=== PATIENT | female | born 1990 | race Caucasian/White ===

== ENCOUNTER 2019-05-10 13:35 | Emergency (ER) | payer BC, SELFPAY ==
[2019-05-10 13:35] VITALS: BP 152/85; PULSE 116; RESP 36; TEMP 38.8; O2SAT 95; BMI 38.9
--- NOTE | 2019-05-10 13:43 | W.ED.URI ---
HPI - URI/Sore Throat General: Chief Complaint: Upper Respiratory Infection Stated Complaint: SOB/ COUGH/ CHEST PAIN Time Seen by Provider: 05/10/19 13:36 Review of Systems General: Reports: 10 or more systems reviewed and unremarkable except in HPI and below PFSH ED PFSH: Statuses (acute, chronic, etc) shown below reflect problem list status as previously entered and may not be historically accurate Social History Smoking and tobacco status: current every day smoker Physical Exam Narrative: EXAM NARRATIVE: Patient states she has been ill for the past few days. Nonproductive cough with shortness of breath. Const: COMMON NORMALS: no apparent distress, average body habitus, oriented x3 and alert GENERAL APPEARANCE: cooperative, comfortable and well kempt ORIENTATION/CONSCIOUSNESS: Yes awake, Yes oriented to person, Yes oriented to place and Yes oriented to time HENMT: COMMON NORMALS: normocephalic, head/scalp atraumatic and external nose normal HEAD & SCALP: normal to inspection, normocephalic and atraumatic NOSE: external nose normal Neck/C-Spine: COMMON NORMALS: full ROM, no lymphadenopathy, supple and no JVD Resp: COMMON NORMALS: normal respiratory effort and no retractions EFFORT & INSPECTION: Yes able to speak in complete sentences AUSCULTATION: diminished lung sounds Cardio: COMMON NORMALS: no JVD, regular rate and regular rhythm RATE: regular rate RHYTHM: regular rhythm GI: COMMON NORMALS: normal to inspection, nondistended, normoactive bowel sounds : COMMON NORMALS: Yes no CVA tenderness BLADDER/KIDNEY EXAM: Yes no CVA tenderness Back/Pelvis: COMMON NORMALS: no CVA tenderness Extremity: COMMON NORMALS: normal to inspection, full ROM and normal capillary refill Neuro: COMMON NORMALS: oriented x3 SENSORIUM/ORIENTATION: Yes alert, Yes oriented to person, Yes oriented to place and Yes oriented to time Psych: APPEARANCE: Yes well kempt Course Vital Signs: Vital signs: Vital Signs Temperature 102 F H 05/10/19 13:35 Pulse Rate 112 H 05/10/19 14:23 Respiratory Rate 25 H 05/10/19 14:20 Blood Pressure 152/85 05/10/19 13:35 Pulse Oximetry 97 05/10/19 14:20 MDM - URI/Sore Throat Lab Data: Labs: Lab Results 05/10/19 05/10/19 05/10/19 Range/Units 13:54 13:54 14:17 WBC 10.8 H (4.0-10.0) 10^3/ uL RBC 5.00 (4.1-5.3) 10^6/u L Hgb 13.9 (11.5-15.3) g/dL Hct 43.3 (37.0-47.0) % MCV 86.6 (81-99) fL MCH 27.8 L (28.0-34.0) pg MCHC 32.1 (30.0-36.0) g/dL RDW 13.7 (12.1-15.1) % Plt Count 207 (130-400) 10^3/c mm MPV 9.6 (7.4-10.4) fL Neut % (Auto) 76.7 % Lymph % (Auto) 15.8 % [place] % (Auto) 6.5 % Eos % (Auto) 0.3 % Baso % (Auto) 0.3 % Neut # (Auto) 8.3 H (1.8-7.7) 10^3/u L Lymph # (Auto) 1.7 (0.8-4.8) 10^3/u L [place] # (Auto) 0.7 (0.2-0.9) 10^3/u L Eos # (Auto) 0.0 (0.0-0.8) 10^3/u L Baso # (Auto) 0.0 (0.0-0.1) 10^3/u L Nucleated RBC % (a uto) 0 % Nucleated RBCs # 0.0 /100WBC Sodium 134 L (136-145) mmol/L Potassium 3.8 (3.5-5.1) mmol/L Chloride 98 (98-107) mmol/L Carbon Dioxide 25 (22-29) mmol/L Anion Gap 14.8 (5-19) BUN 6 (6-20) mg/dL Creatinine 0.9 (0.5-0.9) mg/dL GFR Calculation 75.1 L (90-130) mL/min Glucose 102 (74-109) mg/dL Calcium 9.3 (8.6-10.0) mg/Dl Total Bilirubin 0.2 (0.15-1.2) mg/dL AST 26 (0-32) U/L ALT 24 (0-33) U/L Alkaline Phosphata se 126 H (35-105) IU/L Total Protein 7.8 (6.6-8.7) g/dL Albumin 3.9 (3.5-5.2) g/dL Globulin 3.9 (1.3-4.6) g/dL Influenza Type A A g Negative (Negative) POC Influenza B Ag Negative (Negative) Discharge Plan Discharge Condition: Stable Prescriptions: No Action No Known Home Medications RF: 0 Coding Level of Care Code 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
--- NOTE | 2019-05-10 13:46 | XR_ITS ---
WS: [id number] PORTABLE CHEST HISTORY: cough / dyspnea COMPARISON: None available. Mild bronchial thickening in the RIGHT upper lobe. No consolidation. No pleural effusion or pneumotho rax. Cardiac size: Normal. Mediastinum/Aorta: Normal mediastinum. No osseous abnormality seen. XR/XR chest 1V portable [id number] IMPRESSION: Mild inflammatory changes RIGHT upper lobe.
[2019-05-10] MEDS: sodium chloride 0.9% 1,000 ML 999 ML IV (14:06)
[2019-05-10 14:07] LABS: Basophils % 0.3 %; Eosinophils % 0.3 %; Hematocrit 43.3 % (37.0-47.0); Hemoglobin 13.9 g/dL (11.5-15.3); Lymphocytes # 1.7 10^3/uL (0.8-4.8); Lymphocytes % 15.8 %; Mean Corpuscular HGB Conc 32.1 g/dL (30.0-36.0); Mean Corpuscular Hemoglobin 27.8 pg (28.0-34.0); Mean Corpuscular Volume 86.6 fL (81-99); Mean Platelet Volume 9.6 fL (7.4-10.4); Monocytes # 0.7 10^3/uL (0.2-0.9); Monocytes % 6.5 %; Neutrophils # 8.3 10^3/uL (1.8-7.7); Neutrophils % 76.7 %; Nucleated Red Blood Cells % 0 %; Platelet Count 207 10^3/cmm (130-400); Red Cell Distribution Width 13.7 % (12.1-15.1); White Blood Count 10.8 10^3/uL (4.0-10.0)
[2019-05-10] MEDS: ipratropium-albuterol 3 mL Neb INHALATION (14:13)
[2019-05-10 14:18] LABS: Alanine Aminotransferase 24 U/L (0-33); Albumin Level 3.9 g/dL (3.5-5.2); Alkaline Phosphatase 126 IU/L (35-105); Anion Gap 14.8 (5-19); Aspartate Amino Transferase 26 U/L (0-32); Blood Urea Nitrogen 6 mg/dL (6-20); Calcium 9.3 mg/Dl (8.6-10.0); Carbon Dioxide 25 mmol/L (22-29); Chloride 98 mmol/L (98-107); Globulin 3.9 g/dL (1.3-4.6); Glomerular Filtration Rate 75.1 mL/min (90-130); Glucose 102 mg/dL (74-109); Potassium 3.8 mmol/L (3.5-5.1); Sodium 134 mmol/L (136-145); Total Bilirubin 0.2 mg/dL (0.15-1.2); Total Protein 7.8 g/dL (6.6-8.7)
[2019-05-10 14:20] VITALS: PULSE 119; RESP 25; O2SAT 97
[2019-05-10 14:23] VITALS: PULSE 112
[2019-05-10 14:59] LABS: Influenza A by IFA Negative (Negative); Influenza B by IFA Negative (Negative)
[2019-05-10] MEDS: acetaminophen 500 mg Tablet 1000 MG PO (15:23)
[2019-05-10] MEDS: cefTRIAXone 1,000 MG in sodium chloride 0.9% (plus) 50 ML 100 MG IV (15:25)
[2019-05-10 16:14] VITALS: BP 125/85; PULSE 117; RESP 16; O2SAT 95
== END 2019-05-10 16:15 | disposition home or self-care (01) ==
PROVIDERS: Emergency Provider Family Medicine; Family Provider Nurse Practitioner; PCP Nurse Practitioner
DX: F17.210 Nicotine dependence, cigarettes, uncomplicated (principal)
CPT/HCPCS: 36415; 71045; 80053; 85025; 87804; 96360; 96365; 99281; J0696; J7030

== ENCOUNTER → 2020-05-31 17:06 | Outpatient (BNVA) | payer BC, SELFPAY | PROVIDERS: Family Provider Nurse Practitioner; PCP Nurse Practitioner; Visit Provider Nurse Practitioner Family | DX: Z20.828 Contact with and (suspected) exposure to other viral communicable diseases (principal); J06.9 Acute upper respiratory infection, unspecified | CPT/HCPCS: 87635 ==

== ENCOUNTER → 2021-05-07 11:51 | Outpatient (BNVA) | payer MEDICAID, SELFPAY | PROVIDERS: Family Provider Nurse Practitioner; PCP Nurse Practitioner; Visit Provider Family Medicine | DX: Z83.3 Family history of diabetes mellitus (principal); Z82.49 Family history of ischemic heart disease and other diseases of the circulatory system; Z83.438 Family history of other disorder of lipoprotein metabolism and other lipidemia | CPT/HCPCS: 80053; 80061; 83036; 84443; 85025 ==

== ENCOUNTER → 2021-06-18 17:00 | Outpatient (BNVA) | payer MEDICAID, SELFPAY | PROVIDERS: Family Provider Nurse Practitioner; PCP Family Medicine; Visit Provider Family Medicine | DX: Z01.419 Encounter for gynecological examination (general) (routine) without abnormal findings (principal) | CPT/HCPCS: 88175 ==

== ENCOUNTER 2021-08-07 20:00 | Outpatient (CLI) | payer OTHER, SELFPAY | END 2021-08-07 20:01 | disposition home or self-care (01) | LOC: SLEEP 08-08 05:44 | PROVIDERS: Family Provider Nurse Practitioner; PCP Family Medicine; Visit Provider Family Medicine | DX: G47.30 Sleep apnea, unspecified (principal) | CPT/HCPCS: 95810 ==

== ENCOUNTER 2021-10-08 20:00 | Outpatient (CLI) | payer OTHER, SELFPAY | END 2021-10-08 20:01 | disposition home or self-care (01) | LOC: SLEEP 10-09 05:15 | PROVIDERS: Family Provider Nurse Practitioner; PCP Family Medicine; Visit Provider Family Medicine | DX: G47.33 Obstructive sleep apnea (adult) (pediatric) (principal) | CPT/HCPCS: 95811 ==

== ENCOUNTER → 2022-01-29 13:25 | Outpatient (BNVA) | payer MEDICAID, SELFPAY | PROVIDERS: Family Provider Nurse Practitioner; PCP Family Medicine; Visit Provider Nurse Practitioner Family | DX: H10.022 Other mucopurulent conjunctivitis, left eye (principal); E66.01 Morbid (severe) obesity due to excess calories; E78.5 Hyperlipidemia, unspecified; E11.9 Type 2 diabetes mellitus without complications | CPT/HCPCS: 80053; 80061; 83036; 83721; 84443 ==

== ENCOUNTER → 2022-02-13 12:07 | Outpatient (BNVA) | payer MEDICAID, SELFPAY | PROVIDERS: Family Provider Nurse Practitioner; PCP Family Medicine; Visit Provider Nurse Practitioner Family | DX: E11.9 Type 2 diabetes mellitus without complications (principal); E78.5 Hyperlipidemia, unspecified; Z76.89 Persons encountering health services in other specified circumstances; E66.01 Morbid (severe) obesity due to excess calories | CPT/HCPCS: 83036 ==

== ENCOUNTER → 2022-04-29 17:43 | Outpatient (BNVA) | payer MEDICAID, SELFPAY | PROVIDERS: Family Provider Nurse Practitioner; PCP Family Medicine; Visit Provider Nurse Practitioner Family | DX: E78.5 Hyperlipidemia, unspecified (principal); E11.9 Type 2 diabetes mellitus without complications; J06.9 Acute upper respiratory infection, unspecified; J32.0 Chronic maxillary sinusitis; M54.31 Sciatica, right side; R05.9 Cough, unspecified; J40 Bronchitis, not specified as acute or chronic | CPT/HCPCS: 80053 ==

== ENCOUNTER → 2022-05-19 12:09 | Outpatient (BNVA) | payer OTHER, SELFPAY | PROVIDERS: Family Provider Nurse Practitioner; PCP Family Medicine; Visit Provider Nurse Practitioner Family | DX: E11.9 Type 2 diabetes mellitus without complications (principal); Z82.49 Family history of ischemic heart disease and other diseases of the circulatory system; E78.5 Hyperlipidemia, unspecified; M54.31 Sciatica, right side; Z23 Encounter for immunization | CPT/HCPCS: 80053; 80061; 83036 ==

== ENCOUNTER → 2022-08-19 11:26 | Outpatient (BNVA) | payer OTHER, SELFPAY | PROVIDERS: Family Provider Nurse Practitioner; PCP Family Medicine; Visit Provider Nurse Practitioner Family | DX: E11.9 Type 2 diabetes mellitus without complications (principal); E78.5 Hyperlipidemia, unspecified | CPT/HCPCS: 80053; 80061; 83036 ==

== ENCOUNTER → 2022-09-10 09:00 | Outpatient (BNVA) | payer OTHER, SELFPAY | PROVIDERS: Family Provider Nurse Practitioner; PCP Family Medicine; Referring Provider Nurse Practitioner Family; Visit Provider Nurse Practitioner Women's Health | DX: N91.0 Primary amenorrhea (principal) | CPT/HCPCS: 82670; 83001; 84146; 84402; 84439; 84443; 84702 ==

== ENCOUNTER → 2022-09-25 12:27 | Outpatient (BNVA) | payer OTHER, SELFPAY | PROVIDERS: Family Provider Nurse Practitioner; PCP Family Medicine; Visit Provider Nurse Practitioner Women's Health | DX: N91.0 Primary amenorrhea (principal); R93.89 Abnormal findings on diagnostic imaging of other specified body structures | CPT/HCPCS: 76830 ==

== ENCOUNTER → 2022-10-02 08:41 | Outpatient (BNVA) | payer SELFPAY | PROVIDERS: Family Provider Nurse Practitioner; PCP Family Medicine; Visit Provider Nurse Practitioner Women's Health | DX: N91.2 Amenorrhea, unspecified (principal) | CPT/HCPCS: 81025; 88305 ==

== ENCOUNTER → 2022-10-08 15:05 | Outpatient (BNVA) | payer SELFPAY | PROVIDERS: Family Provider Nurse Practitioner; PCP Family Medicine; Visit Provider Obstetrics & Gynecology | DX: E28.2 Polycystic ovarian syndrome (principal) | CPT/HCPCS: 83002 ==

== ENCOUNTER 2022-10-09 09:46 | Outpatient (CLI) | payer OTHER, SELFPAY | END 2022-10-09 09:47 | disposition home or self-care (01) | PROVIDERS: PCP Family Medicine; Visit Provider Obstetrics & Gynecology | DX: E28.2 Polycystic ovarian syndrome (principal) | CPT/HCPCS: 36415; 88262 ==

== ENCOUNTER → 2022-12-16 11:49 | Outpatient (BNVA) | payer OTHER, SELFPAY | PROVIDERS: PCP Family Medicine; Visit Provider Nurse Practitioner Family | DX: E78.5 Hyperlipidemia, unspecified (principal); E11.9 Type 2 diabetes mellitus without complications | CPT/HCPCS: 80053; 80061; 83036 ==

== ENCOUNTER → 2023-03-18 08:45 | Outpatient (BNVA) | payer SELFPAY | PROVIDERS: PCP Family Medicine; Visit Provider Nurse Practitioner Family | DX: E78.5 Hyperlipidemia, unspecified (principal); E11.9 Type 2 diabetes mellitus without complications; E28.2 Polycystic ovarian syndrome | CPT/HCPCS: 80053; 80061; 83036; 85025 ==

== ENCOUNTER → 2023-07-15 11:42 | Outpatient (BNVA) | payer OTHER, SELFPAY | PROVIDERS: PCP Family Medicine; Visit Provider Nurse Practitioner Family | DX: E78.2 Mixed hyperlipidemia (principal); E28.2 Polycystic ovarian syndrome; E11.9 Type 2 diabetes mellitus without complications; E66.01 Morbid (severe) obesity due to excess calories | CPT/HCPCS: 80053; 80061; 83036; 84443; 85025 ==

== ENCOUNTER 2023-08-17 18:53 | Emergency (ER) | payer OTHER, SELFPAY ==
--- NOTE | 2023-08-17 19:08 | XRR_ITS ---
PROCEDURE INFORMATION: Exam: XR Left Knee Exam date and time: 08/17/2023 8:01 PM Age: 32 years old Clinical indication: Injury or trauma; Other: Twisted lt knee; Additional info: Pain TECHNIQUE: Imaging protocol: Radiologic exam of the left knee. Views: 3 views. COMPARISON: No relevant prior studies available. FINDINGS: Bones/joints: Small joint effusion. No acute fracture. Soft tissues: Normal. XR/XR knee LT 3V* [id number] IMPRESSION: 1. Small joint effusion. 2. No acute fracture.
[2023-08-17 19:09] VITALS: BP 136/85; PULSE 100; RESP 18; TEMP 37.1; O2SAT 98
[2023-08-17] MEDS: ketorolac 60 mg/2 mL INJ IM (20:05)
--- NOTE | 2023-08-17 20:19 | W.ED.EXTPRO ---
Documented by User: SIRENA Cardoza 08/17/23 21:26 HPI - Extremity Problem General: Chief complaint: Extremity Injury, Lower Stated complaint: left knee pain Time Seen by Provider: 08/17/23 19:41 Source: patient Mode of arrival: ambulatory Limitations: no limitations History of Present Illness: Patient is a 32-year-old female present to the emergency department complaining of left knee pain onset Thursday. Patient states she was playing with her kids when she had a sudden twisting of the left knee, and notes pain has steadily worsened since. She denies any bruising but states it has begun to swell up on her. She denies any previous injuries or surgeries to that knee. No distal neurovascular complaints. She states that ambulation has become increasingly difficult due to the pain. Pain currently an 8 out of 10 stating she has been using Tylenol and ibuprofen. No other symptoms reported this time. MD Complaint: joint swelling and joint pain Onset (ago): day(s) Pain Consistency: constant Location: left Severity scale (1-10): 8 Radiation: none Relieving factors: nothing Exacerbating factors: range of motion, weight bearing, walking and palpation Associated symptoms: Deny chest pain, fever(s) or rash Review of Systems General: Reports: 10 or more systems reviewed and unremarkable except in HPI and below Const: Denies: fever(s), chills or fatigue Eyes: Denies: change in vision ENMT: Denies: throat pain, ear or mastoid pain or nasal discharge Card: Denies: chest pain, palpitations, swelling of feet/ankles or lightheadedness Resp: Denies: dyspnea, productive cough or wheezing GI: Denies: abdominal pain, nausea, vomiting, diarrhea or constipation : Denies: flank pain, difficulty voiding, dysuria or urinary frequency Musc: Reports: joint pain and joint swelling; Denies: neck pain or back pain Skin/Breast: Denies: rash Neuro: Denies: headache(s), numbness in extremities or weakness in extremities PFS ED PFSH: Medical History Primary amenorrhea Sciatica of right side Type 2 diabetes mellitus Hyperlipidemia Morbid obesity due to excess calories Sleep apnea Surgical History History of laparoscopy at 18 y/o to remove Left dermoid ovarian cyst. Performed by Dr. Rivera Family History Family/Other Cancer, Onset Age: 40 maternal aunt Family history of premature coronary artery disease, Onset Age: 46 Maternal Uncle Mother Diabetes Hyperlipidemia Hypertension Father Diabetes Grandmother Stroke MGM Denies family history of Clotting disorder Bleeding disorder Social History Smoking and tobacco/nicotine status: never used tobacco/nicotine Alcohol intake: current Alcohol intake frequency: holidays/special occasions only Substance/Drug Use: never Lives independently: No Household members: significant other Marital status: Life Partner service: No Current gender identity: Female Physical Exam Const: COMMON NORMALS: no acute distress, patient oriented x3 and no limitations GENERAL APPEARANCE: cooperative, comfortable and well developed ORIENTATION/CONSCIOUSNESS: Yes awake, Yes oriented to person, Yes oriented to place and Yes oriented to time HENMT: COMMON NORMALS: normocephalic, atraumatic and hearing grossly normal bilaterally HEAD & SCALP: normocephalic and atraumatic Eye: COMMON NORMALS: Equal, round and reactive pupils present, EOMs intact bilaterally and conjunctivae normal CONJUNCTIVA: Yes conjunctivae normal PUPIL: Yes Equal, round and reactive pupils present Neck/C-Spine: COMMON NORMALS: full ROM, supple and no JVD Resp: COMMON NORMALS: normal respiratory effort, No retractions, No use of accessory muscles and clear to auscultation bilaterally AUSCULTATION: clear to auscultation bilaterally Cardio: COMMON NORMALS: no JVD, regular rate, regular rhythm, No clicks present (Cardio), No murmurs present (Cardio) and No rub (Cardio) RATE: regular rate RHYTHM: regular rhythm Extremity: NARRATIVE EXTREMITY EXAM: Left knee minimally swollen. No obvious signs of deformities or bruising. She is diffusely tender to palpation, no appreciable joint effusions. Normal ankle, tib-fib, hip examination on the left side. No varus or valgus laxity. Negative anterior posterior drawer. Neuro: COMMON NORMALS: patient oriented x3, moves all extremities, no focal motor deficits and no sensory deficits noted SENSORIUM/ORIENTATION: Yes oriented to person, Yes oriented to place and Yes oriented to time Psych: COMMON NORMALS: mental status grossly normal and Normal thought process present THOUGHT PROCESS: Normal thought process present Skin: COMMON NORMALS: no rashes or lesions noted GENERAL SKIN EXAM: no rashes or lesions noted Course Vital Signs: Vital signs: Vital Signs Temperature 98.8 F 08/17/23 19:09 Pulse Rate 101 H 08/17/23 21:43 Respiratory Rate 18 08/17/23 21:43 Blood Pressure 143/94 08/17/23 21:43 Pulse Oximetry 95 08/17/23 21:43 Oxygen Delivery Me thod Room Air 08/17/23 19:09 MDM - Extremity (Nontraumatic) Medical Decision Making Patient seen and evaluated due to left knee injury on Thursday worsening pain since. Vitals normal on arrival, patient's condition has remained stable. Exam did show diffusely swollen and tender to palpation left knee, I did not appreciate any joint effusion at this time. Negative special knee testing. X-ray of the left knee did show evidence of a small joint effusion, however no fractures or dislocations. I do have mild to moderate suspicion of a potential underlying ligamentous injury, sprain versus tear. I will discharge the patient on crutches and instructed to be nonweightbearing until she follows up with Ortho in the next few days. Did instruct her to enact RICE therapy. Return precautions were given and patient agrees with discharge home. Lab Data Radiology Impressions Knee X-Ray 08/17/23 19:08 IMPRESSION: 1. Small joint effusion. 2. No acute fracture. All radiology interpretation(s) finalized by discharge Discharge Plan Discharge Patient Disposition: Home Clinical Impression: Left knee sprain Qualifiers: Encounter type: initial encounter Involved ligament of knee: unspecified ligament Qualified Code(s): S83.92XA - Sprain of unspecified site of left knee, initial encounter Condition: Stable Prescriptions: No Action tramadol 50 mg tablet 50 mg PO TID PRN (Reason: pain) 30 Days Qty: 90 1RF topiramate 25 mg tablet 25 mg PO BID 30 Days Qty: 60 3RF polyethylene glycol 3350 [Miralax] 17 gram/dose powder 17 g PO DAILY 30 Days Qty: 510 3RF cyclobenzaprine 10 mg tablet 10 mg PO TID PRN (Reason: muscle spasm) Qty: 90 3RF cetirizine [Zyrtec] 10 mg tablet 10 mg PO DAILY 90 Days Qty: 90 1RF azelastine [Astepro Allergy] 205.5 mcg (0.15 %) spray,non-aerosol 2 spray intranasal BID Qty: 30 3RF Rx Instructions: administer into each nostril atorvastatin 40 mg tablet See Rx Instructions .ROUTE .COMPLEX Qty: 30 3RF Dose Instruction: TAKE ONE TABLET BY MOUTH At Bedtime Rx Instructions: TAKE ONE TABLET BY MOUTH At Bedtime (DME) BI-PAP set up kit See Rx Instructions .Route .MEDSUPPLY Qty: 1 0RF Rx Instructions: As directed Discharge Orders: Discharge ED (Routine); Ordered 08/17/23 Ordered By: Ed Tan Referrals: Yasmine Weems MD [Primary Care Provider] - Discharge Diet: Usual diet Discharge Activity: Use walker/crutches as instructed Patient Instructions: Knee Sprain (ED) Activity Restrictions/Additional Instructions: Use crutches as instructed. Rest, ice, compression, and elevation. Please follow-up with orthopedics as discussed. Tylenol and ibuprofen for pain. Please return with any new or worsening symptoms may have. 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 Performed by Dr. Rivera Family History Family/Other Cancer, Onset Age: 40 maternal aunt Family history of premature coronary artery disease, Onset Age: 46 Maternal Uncle Mother Diabetes Hyperlipidemia Hypertension Father Diabetes Grandmother Stroke MGM Denies family history of Clotting disorder Bleeding disorder Social History Smoking and tobacco/nicotine status: never used tobacco/nicotine Alcohol intake: current Alcohol intake frequency: holidays/special occasions only Substance/Drug Use: never Lives independently: No Household members: significant other Marital status: Life Partner service: No Current gender identity: Female Course Vital Signs: Vital signs: Vital Signs Temperature 98.8 F 08/17/23 19:09 Pulse Rate 101 H 08/17/23 21:43 Respiratory Rate 18 08/17/23 21:43 Blood Pressure 143/94 08/17/23 21:43 Pulse Oximetry 95 08/17/23 21:43 Oxygen Delivery Me thod Room Air 08/17/23 19:09 MDM - Extremity (Nontraumatic) Medical Decision Making Patient seen and evaluated due to left knee injury on Thursday worsening pain since. Vitals normal on arrival, patient's condition has remained stable. Exam did show diffusely swollen and tender to palpation left knee, I did not appreciate any joint effusion at this time. Negative special knee testing. X-ray of the left knee did show evidence of a small joint effusion, however no fractures or dislocations. I do have mild to moderate suspicion of a potential underlying ligamentous injury, sprain versus tear. I will discharge the patient on crutches and instructed to be nonweightbearing until she follows up with Ortho in the next few days. Did instruct her to enact RICE therapy. Return precautions were given and patient agrees with discharge home. Chart reviewed Lab Data Radiology Impressions Knee X-Ray 08/17/23 19:08 IMPRESSION: 1. Small joint effusion. 2. No acute fracture. Discharge Plan Discharge Patient Disposition: Home Clinical Impression: Left knee sprain Qualifiers: Encounter type: initial encounter Involved ligament of knee: unspecified ligament Qualified Code(s): S83.92XA - Sprain of unspecified site of left knee, initial encounter Condition: Stable Prescriptions: No Action tramadol 50 mg tablet 50 mg PO TID PRN (Reason: pain) 30 Days Qty: 90 1RF topiramate 25 mg tablet 25 mg PO BID 30 Days Qty: 60 3RF polyethylene glycol 3350 [Miralax] 17 gram/dose powder 17 g PO DAILY 30 Days Qty: 510 3RF cyclobenzaprine 10 mg tablet 10 mg PO TID PRN (Reason: muscle spasm) Qty: 90 3RF cetirizine [Zyrtec] 10 mg tablet 10 mg PO DAILY 90 Days Qty: 90 1RF azelastine [Astepro Allergy] 205.5 mcg (0.15 %) spray,non-aerosol 2 spray intranasal BID Qty: 30 3RF Rx Instructions: administer into each nostril atorvastatin 40 mg tablet See Rx Instructions .ROUTE .COMPLEX Qty: 30 3RF Dose Instruction: TAKE ONE TABLET BY MOUTH At Bedtime Rx Instructions: TAKE ONE TABLET BY MOUTH At Bedtime (DME) BI-PAP set up kit See Rx Instructions .Route .MEDSUPPLY Qty: 1 0RF Rx Instructions: As directed Discharge Orders: Discharge ED (Routine); Ordered 08/17/23 Ordered By: Ed Tan Referrals: Yasmine Weems MD [Primary Care Provider] - Discharge Diet: Usual diet Discharge Activity: Use walker/crutches as instructed Patient Instructions: Knee Sprain (ED) Activity Restrictions/Additional Instructions: Use crutches as instructed. Rest, ice, compression, and elevation. Please follow-up with orthopedics as discussed. Tylenol and ibuprofen for pain. Please return with any new or worsening symptoms may have. Coding Level of Care Code ED Optical Manufacturing Technician for Juany Torres
[2023-08-17 21:43] VITALS: BP 143/94; PULSE 101; RESP 18; O2SAT 95
--- NOTE | 2023-08-18 08:05 | DCPLANNER ---
Message sent to Ortho for a follow up appointment -
== END 2023-08-17 21:44 | disposition home or self-care (01) ==
PROVIDERS: Emergency Provider Physician Assistant; PCP Family Medicine
DX: S83.92XA Sprain of unspecified site of left knee, initial encounter (principal); E11.9 Type 2 diabetes mellitus without complications; E78.5 Hyperlipidemia, unspecified; X50.1XXA Overexertion from prolonged static or awkward postures, initial encounter
CPT/HCPCS: 73562; 96372; 99284; J1885

== ENCOUNTER → 2023-11-17 09:07 | Outpatient (BNVA) | payer OTHER, SELFPAY | PROVIDERS: PCP Family Medicine; Visit Provider Nurse Practitioner Family | DX: J30.2 Other seasonal allergic rhinitis (principal); E28.2 Polycystic ovarian syndrome; G47.30 Sleep apnea, unspecified; E78.2 Mixed hyperlipidemia; E11.9 Type 2 diabetes mellitus without complications; E66.01 Morbid (severe) obesity due to excess calories | CPT/HCPCS: 80053; 80061; 83036; 84443; 85025 ==

== ENCOUNTER → 2024-03-03 08:50 | Outpatient (BNVA) | payer BC, SELFPAY | PROVIDERS: PCP Family Medicine; Visit Provider Nurse Practitioner Family | DX: E11.9 Type 2 diabetes mellitus without complications (principal) | CPT/HCPCS: 80053; 80061; 83036; 84443; 85025 ==